=== PATIENT | female | born 1980 | race Caucasian/White ===

== ENCOUNTER 2024-01-23 15:39 | Emergency (ER) | payer BC ==
[~2024-01-23] VITALS: Ht 170.2 cm; Wt 94.9 kg
[2024-01-23 16:18] VITALS: BP 144/98; PULSE 93; RESP 16; TEMP 99.9; O2SAT 100
== END 2024-01-23 16:56 | disposition home or self-care (01) ==
LOC: ER 15:39
DX: S00.03XA Contusion of scalp, initial encounter (principal); R51.9 Headache, unspecified; W22.8XXA Striking against or struck by other objects, initial encounter; Y93.89 Activity, other specified; Y92.89 Other specified places as the place of occurrence of the external cause; Y99.8 Other external cause status
CPT/HCPCS: 70450